=== PATIENT | female | born 1945 | race Caucasian/White ===

== ENCOUNTER 2023-05-03 04:26 | Inpatient (IN) | payer OTHER ==
[2023-04-01 08:44] VITALS: BMI 31.9
[2023-05-03] MEDS ORDERED: PROPOFOL 20 ML ONE ×2 (13:59→14:33)
[2023-05-03] MEDS ORDERED: MIDAZOLAM HCL 2 MG/2 ML SINGLE DOSE VIAL ONE (14:00)
[2023-05-03] MEDS ORDERED: ceFAZolin SODIUM 1 GM VIAL ONE (14:32)
[2023-05-03] MEDS ORDERED: ceFAZolin 2 GRAM PREMIX BAG IVPB ONE (14:40)
[2023-05-03] MEDS ORDERED: BUPIVACAINE HCL/PF 0.5% (5MG/ML) 10 ML VIAL IJ ONE ×3 (14:40→14:48)
[2023-05-03] MEDS ORDERED: LIDOCAINE 1% P/F 10 MG/ML VIAL PNB ONE ×3 (14:41→14:48)
[2023-05-03] MEDS: hydrALAZINE HCL 20 MG/ML VIAL IVPUSH PRN ×2 (15:40→15:50)
[2023-05-03] MEDS ORDERED: ACETAMINOPHEN 1000 MG/100 ML BAG IVPB PRN (15:43)
[2023-05-03] MEDS ORDERED: PROMETHAZINE HCL 25 MG/1 ML VIAL IVPB PRN (15:43)
[2023-05-03] MEDS ORDERED: oxyCODONE HCL 5 MG TABLET PO PRN ×4 (15:43→22:25)
[2023-05-03] MEDS ORDERED: ONDANSETRON 4 MG/2 ML VIAL IVPUSH PRN (15:43)
[2023-05-03] MEDS ORDERED: hydrALAZINE HCL 20 MG/ML VIAL IVPUSH ONE (15:47)
[2023-05-03] MEDS ORDERED: ACETAMINOPHEN INJECTION 100 ML IVPB ONE (16:23)
[2023-05-03] MEDS ORDERED: clonazePAM 0.25 MG ODT TABLETS SL PRN (18:55)
[2023-05-03] MEDS ORDERED: ACETAMINOPHEN 325 MG TABLET (FP) PO PRN ×2 (19:00→22:30)
[2023-05-03] MEDS: DULoxetine HCL 30 MG CAPSULE.DR PO ONE ×2 (19:05→21:13)
[2023-05-03] MEDS: LACTATED RINGERS SOLUTION 1,000 ML IV SCH (21:11)
[2023-05-04] MEDS: POLYETHYLENE GLYCOL (HEALTHYLAX) 3350 17 GM PACKET PO SCH ×3 (00:12→22:10)
[2023-05-04] MEDS ORDERED: clonazePAM 0.25 MG ODT TABLETS SL PRN (04:09)
[2023-05-04] MEDS: INSULIN SLIDING SCALE (NOVOLOG) 1 VIAL SQ SCH ×3 (06:53→16:53)
[2023-05-04 07:19] VITALS: RESP 18
[2023-05-04] MEDS: LACTATED RINGERS SOLUTION 1,000 ML IV SCH (08:07)
[2023-05-04] MEDS ORDERED: LISINOPRIL 10 MG TABLET PO SCH (10:00)
[2023-05-04] MEDS ORDERED: HYDROCHLOROTHIAZIDE 25 MG TABLET (FP) PO SCH (10:00)
[2023-05-04] MEDS: HYDROCHLOROTHIAZIDE 25 MG TABLET (FP) PO SCH (10:20)
[2023-05-04] MEDS: LISINOPRIL 10 MG TABLET PO SCH (10:20)
[2023-05-04] MEDS ORDERED: ACETAMINOPHEN 325 MG TABLET (FP) PO PRN (16:51)
[2023-05-04] MEDS ORDERED: oxyCODONE HCL 5 MG TABLET PO PRN ×2 (16:51→16:53)
[2023-05-04] MEDS: DULoxetine HCL 30 MG CAPSULE.DR PO SCH (17:05)
[2023-05-04] MEDS: ACETAMINOPHEN 325 MG TABLET (FP) PO PRN (17:29)
[2023-05-04] MEDS ORDERED: GABAPENTIN 100 MG CAPSULE PO SCH (22:00)
[2023-05-04] MEDS: CEPHALEXIN MONOHYDRATE 500 MG CAPSULE (UD) PO SCH (22:10)
[2023-05-04] MEDS: MELATONIN 5 MG TABLETS PO SCH (22:11)
[2023-05-04] MEDS: SENNOSIDES 8.6MG TABLET (FP) PO SCH (22:11)
[2023-05-05] MEDS: ACETAMINOPHEN 325 MG TABLET (FP) PO PRN ×2 (09:41→18:10)
[2023-05-05] MEDS: HYDROCHLOROTHIAZIDE 25 MG TABLET (FP) PO SCH (09:42)
[2023-05-05] MEDS: LISINOPRIL 10 MG TABLET PO SCH (09:42)
[2023-05-05] MEDS: CEPHALEXIN MONOHYDRATE 500 MG CAPSULE (UD) PO SCH ×2 (09:42→21:50)
[2023-05-05] MEDS: POLYETHYLENE GLYCOL (HEALTHYLAX) 3350 17 GM PACKET PO SCH ×2 (09:42→21:49)
[2023-05-05] MEDS: DULoxetine HCL 30 MG CAPSULE.DR PO SCH (09:42)
[2023-05-05 10:08] LABS: BASO % 0.6 % (0-2.0); EOS % 3.1 % (0-4.5); HEMATOCRIT 35.3 % (32.4-45.2); HEMOGLOBIN 11.7 GM/dL (10.7-15.3); LYMPH % 50.3 % (8-40); MCH 31.3 pg (25.7-33.7); MCHC 33.3 g/dl (32.0-36.0); MEAN CELL VOLUME 94.1 fl (80-96); MEAN PLT VOLUME 9.1 fl (7.5-11.1); MONO % 7.4 % (3.8-10.2); NEUT % 38.6 % (42.8-82.8); PLATELET COUNT 194 10^3/uL (134-434); RBC 3.75 M/mm3 (3.60-5.2); RDW 14.7 % (11.6-15.6); WHITE BLOOD COUNT 7.9 K/mm3 (4.0-10.0)
[2023-05-05 11:10] LABS: POTASSIUM 4.5 mmol/L (3.5-5.1)
[2023-05-05 11:28] LABS: ALBUMIN 3.2 g/dl (3.4-5.0); BLOOD UREA NITROGEN 37.7 mg/dL (7-18); CALCIUM 9.6 mg/dL (8.5-10.1)
[2023-05-05 11:31] LABS: CREATININE 1.6 mg/dL (0.55-1.3)
[2023-05-05 11:33] LABS: TOT PROT 6.7 g/dl (6.4-8.2)
[2023-05-05 11:34] LABS: BILIRUBIN,TOTAL 0.5 mg/dL (0.2-1)
[2023-05-05] MEDS: MELATONIN 5 MG TABLETS PO SCH (21:49)
[2023-05-05] MEDS: SENNOSIDES 8.6MG TABLET (FP) PO SCH (21:50)
[2023-05-06] MEDS ORDERED: LISINOPRIL 10 MG TABLET PO SCH (10:26)
[2023-05-06] MEDS ORDERED: LISINOPRIL 20 MG TABLET PO ONE (10:26)
[2023-05-06] MEDS: HYDROCHLOROTHIAZIDE 25 MG TABLET (FP) PO SCH (11:29)
[2023-05-06] MEDS: POLYETHYLENE GLYCOL (HEALTHYLAX) 3350 17 GM PACKET PO SCH (11:29)
[2023-05-06] MEDS: DULoxetine HCL 30 MG CAPSULE.DR PO SCH (11:30)
[2023-05-06] MEDS: CEPHALEXIN MONOHYDRATE 500 MG CAPSULE (UD) PO SCH (11:31)
[2023-05-06] MEDS: LISINOPRIL 10 MG TABLET PO SCH (11:33)
[2023-05-06 15:28] VITALS: BP 137/52; PULSE 72; TEMP 97.8
[2023-05-07] MEDS ORDERED: LISINOPRIL 20 MG TABLET PO SCH (10:00)
== END 2023-05-06 15:40 | disposition home or self-care (01) | DRG 520 ==
LOC: JASU-SURG 04:26 → SUATTDRO 04:26 → JASUSAT 04:26 → J5S 20:42 → JASUSAT 05-04 10:46
PROC: 00HV3MZ Insertion of Neurostimulator Lead into Spinal Cord, Percutaneous Approach (ICD-10-PCS; principal; 2023-05-04)
DX: M54.16 Radiculopathy, lumbar region (principal); G89.18 Other acute postprocedural pain; M48.061 Spinal stenosis, lumbar region without neurogenic claudication; M79.7 Fibromyalgia; E78.5 Hyperlipidemia, unspecified; I12.9 Hypertensive chronic kidney disease with stage 1 through stage 4 chronic kidney disease, or unspecified chronic kidney disease; E11.22 Type 2 diabetes mellitus with diabetic chronic kidney disease; N18.9 Chronic kidney disease, unspecified; G62.9 Polyneuropathy, unspecified; R53.1 Weakness
CPT/HCPCS: 36415; 72070-TC-FY; 76000-TC-FY; 80053; 82962; 85025; 93005; 93010; 94760; 97116-GP; 97162-GP; C1897